=== PATIENT | female | born 1955 | race Caucasian/White ===

== ENCOUNTER → 2017-06-28 | Outpatient (CLI) | payer OTHER ==
--- NOTE | 2017-06-29 10:37 | MM ---
Reason for exam: screening (asymptomatic). Last mammogram was performed 18 years and 1 month ago. History: Patient is postmenopausal. Physical Findings: A clinical breast exam by your physician is recommended on an annual basis and results should be correlated with mammographic findings. MG Screening Mammo w CAD Bilateral CC and MLO view(s) were taken. No prior studies available for comparison. The breast tissue is heterogeneously dense. This may lower the sensitivity of mammography. There is no discrete abnormality. ASSESSMENT: Negative, BI-RAD 1 RECOMMENDATION: Routine screening mammogram of both breasts in 1 year.
== END | disposition home or self-care (01) ==
LOC: RADMAMWWP 07:16
PROVIDERS: ATTEND Internal Medicine
DX: Z12.31 Encounter for screening mammogram for malignant neoplasm of breast (principal)
CPT/HCPCS: 77067

== ENCOUNTER 2018-07-08 11:04 | Observation (INO) | payer MEDICARE ==
[2018-07-08] MEDS ORDERED: SODIUM CHLORIDE 0.9% 1,000 ML IV STA ×2 (11:40)
[2018-07-08] MEDS ORDERED: IPRATROPIUM-ALBUTEROL 3 ML NEB INHALATION STA (11:40)
[2018-07-08] MEDS ORDERED: methylPREDNISolone SOD SUCCI 125 MG/2 ML VIAL IV STA (11:40)
--- NOTE | 2018-07-08 11:44 | ED ---
SOB HPI - General Chief Complaint: Shortness of Breath Stated Complaint: SOB Time Seen by Provider: 07/08/18 11:10 Source: patient, EMS, RN notes reviewed, old records reviewed Mode of arrival: EMS Limitations: no limitations - History of Present Illness Initial Comments: 62-year-old female presents returns today with complaints of shortness of breath since Sunday. She's been having a cough and congestion. She was seen by her PCP and completed steroids and a course of Levaquin. She reports that she's had some chest pain starting on Sunday and had an episode today. Patient states she has a family history of heart disease no known history of coronary disease. She denies seeing a recoil spring winder or stress test. She complains of a heaviness o n her chest. She also states that in the center of her chest she's been having some pain with deep breathing. - Related Data Home Medications Medication Instructions Recorded Confirmed Losartan-Hctz 50-12.5 mg [Hyzaar 1 tab PO DAILY 07/23/13 07/08/18 50-12.5] Atorvastatin [Lipitor] 20 mg PO DAILY 07/08/18 07/08/18 Budesonide/Formoterol Fumarate 2 puff INHALATION RT-BID 07/08/18 07/08/18 [Symbicort 80-4.5 Mcg Inhaler] Ipratropium/Albuterol Sulfate 3 ml INHALATION RT-QID 07/08/18 07/08/18 [Duoneb 0.5 mg-3 mg/3 ml Soln] Montelukast [Singulair] 10 mg PO HS 07/08/18 07/08/18 metFORMIN HCL 1,000 mg PO BID-W/MEALS 07/08/18 07/08/18 Allergies Allergy/AdvReac Type Severity Reaction Status Date / Time No Known Allergies Allergy Verified 07/08/18 11:28 Review of Systems ROS Statement: Those systems with pertinent positive or pertinent negative responses have been documented in the HPI. ROS Other: All systems not noted in ROS Statement are negative. Past Medical History Past Medical History: Asthma, COPD, Hyperlipidemia, Hypertension, Osteoarthritis (OA) Additional Past Medical History / Comment(s): BRONCHITIS, DIVERTICULITIS, ECZEMA, OCCUPATIONAL ASTHMA; quit smoking 2014 History of Any Multi-Drug Resistant Organisms: None Reported Past Surgical History: Cholecystectomy Past Anesthesia/Blood Transfusion Reactions: No Reported Reaction Past Psychological History: No Psychological Hx Reported Smoking Status: Former smoker Past Alcohol Use History: None Reported Past Drug Use History: None Reported, Marijuana General Exam Limitations: no limitations General appearance: alert, in no apparent distress Head exam: Present: atraumatic, normocephalic, normal inspection Eye exam: Present: normal appearance, PERRL, EOMI. Absent: scleral icterus, conjunctival injection, periorbital swelling ENT exam: Present: normal exam, mucous membranes moist Neck exam: Present: normal inspection. Absent: tenderness, meningismus, ly mphadenopathy Respiratory exam: Present: wheezes (Minimal wheezing.). Absent: normal lung sounds bilaterally, respiratory distress, rales, rhonchi, stridor Cardiovascular Exam: Present: regular rate, normal rhythm, normal heart sounds. Absent: systolic murmur, diastolic murmur, rubs, gallop, clicks GI/Abdominal exam: Present: soft, normal bowel sounds. Absent: distended, tenderness, guarding, rebound, rigid Extremities exam: Present: normal inspection, full ROM, normal capillary refill. Absent: tenderness, pedal edema, joint swelling, calf tenderness Back exam: Present: normal inspection Neurological exam: Present: alert, oriented X3, CN II-XII intact Psychiatric exam: Present: normal affect, normal mood Skin exam: Present: warm, dry, intact, normal color. Absent: rash Course Vital Signs 07/08/18 07/08/18 07/08/18 11:07 11:19 11:30 Temperature 99.2 F Pulse Rate 110 H 113 H Respiratory 18 22 22 Rate Blood Pressure 138/85 138/85 O2 Sat by Pulse 95 97 Oximetry 07/08/18 07/08/18 07/08/18 11:53 12:00 12:30 Temperature Pulse Rate 108 H 105 H 105 H Respiratory 22 20 Rate Blood Pressure 119/79 135/75 O2 Sat by Pulse 95 97 Oximetry 07/08/18 07/08/18 07/08/18 13:00 13:15 13:30 Temperature Pulse Rate 105 H 106 H 112 H Respiratory 22 22 16 Rate Blood Pressure 126/64 126/64 126/64 O2 Sat by Pulse 97 96 96 Oximetry 07/08/18 07/08/18 14:00 14:09 Temperature Pulse Rate 106 H Respiratory 18 Rate Blood Pressure 129/75 135/74 O2 Sat by Pulse 95 Oximetry Medical Decision Making - Medical Decision Making 62-year-old female since reports today for violation for chest pain, tachycardia, shortness is having a cough and some chest pain with deep inspiration. Patient states that she's never had a chest pain such as this before relates this pneumonia or COPD exacerbations. At this time she does have some minimal wheezing. Is given DuoNeb treatment. Pulse ox is been mid upper 90s. She is continues to complain of some chest pain. EKG was reviewed and shows no acute ST elevation or T-wave inversions. Her initial troponin is negative. Patient is be tachycardic. CT HOYT chest was completed with it did not d-dimer of 0.58. This was negative for PE. Patient chest x-ray shows evidence of COPD and pulmonary nodule. Blood work was reviewed mildly of leukocytosis but she has been a recent steroid. For continued chest pain, concerns for sepsis with COPD exacerbation. Patient was admitted. Discussed case with Dr. Moran who discussed the case with [facility] hospitalist. - Lab Data Result diagrams: 07/08/18 11:52 07/08/18 11:52 Lab Results 07/08/18 07/08/18 07/08/18 Range/Units 11:52 11:52 11:52 WBC 11.0 H (3.8-10.6) k/uL RBC 4.59 (3.80-5.40) m/uL Hgb 12.7 (11.4-16.0) gm/dL Hct 39.3 (34.0-46.0) % MCV 85.4 (80.0-100.0) fL MCH 27.6 (25.0-35.0) pg MCHC 32.3 (31.0-37.0) g/dL RDW 13.2 (11.5-15.5) % Plt Count 236 (150-450) k/uL Neutrophils % 81 % Lymphocytes % 10 % Monocytes % 5 % Eosinophils % 2 % Basophils % 0 % Neutrophils # 8.9 H (1.3-7.7) k/uL Lymphocytes # 1.1 (1.0-4.8) k/uL Monocytes # 0.5 (0-1.0) k/uL Eosinophils # 0.3 (0-0.7) k/uL Basophils # 0.0 (0-0.2) k/uL PT 9.8 (9.0-12.0) sec INR 0.9 (<1.2) APTT 24.1 (22.0-30.0) sec D-Dimer 0.58 (<0.60) mg/L FEU Sodium 139 (137-145) mmol/L Potassium 4.2 (3.5-5.1) mmol/L Chloride 101 (98-107) mmol/L Carbon Dioxide 28 (22-30) mmol/L Anion Gap 10 mmol/L BUN 11 (7-17) mg/dL Creatinine 0.57 (0.52-1.04) mg/dL Est GFR (CKD-EPI)AfAm >90 (>60 ml/min/1.73 sqM) Est GFR (CKD-EPI)NonAf >90 (>60 ml/min/1.73 sqM) Glucose 124 H (74-99) mg/dL Calcium 9.3 (8.4-10.2) mg/dL Total Bilirubin 0.6 (0.2-1.3) mg/dL AST 16 (14-36) U/L ALT 29 (9-52) U/L Alkaline Phosphatase 134 H (38-126) U/L Troponin I (0.000-0.034) ng/mL Total Protein 6.9 (6.3-8.2) g/dL Albumin 3.8 (3.5-5.0) g/dL 07/08/18 Range/Units 11:52 WBC (3.8-10.6) k/uL RBC (3.80-5.40) m/uL Hgb (11.4-16.0) gm/dL Hct (34.0-46.0) % MCV (80.0-100.0) fL MCH (25.0-35.0) pg MCHC (31.0-37.0) g/dL RDW (11.5-15.5) % Plt Count (150-450) k/uL Neutrophils % % Lymphocytes % % Monocytes % % Eosinophils % % Basophils % % Neutrophils # (1.3-7.7) k/uL Lymphocytes # (1.0-4.8) k/uL Monocytes # (0-1.0) k/uL Eosinophils # (0-0.7) k/uL Basophils # (0-0.2) k/uL PT (9.0-12.0) sec INR (<1.2) APTT (22.0-30.0) sec D-Dimer (<0.60) mg/L FEU Sodium (137-145) mmol/L Potassium (3.5-5.1) mmol/L Chloride (98-107) mmol/L Carbon Dioxide (22-30) mmol/L Anion Gap mmol/L BUN (7-17) mg/dL Creatinine (0.52-1.04) mg/dL Est GFR (CKD-EPI)AfAm (>60 ml/min/1.73 sqM) Est GFR (CKD-EPI)NonAf (>60 ml/min/1.73 sqM) Glucose (74-99) mg/dL Calcium (8.4-10.2) mg/dL Total Bilirubin (0.2-1.3) mg/dL AST (14-36) U/L ALT (9-52) U/L Alkaline Phosphatase (38-126) U/L Troponin I <0.012 (0.000-0.034) ng/mL Total Protein (6.3-8.2) g/dL Albumin (3.5-5.0) g/dL 07/08/18 11:46 EKG shows sinus tachycardia, possible lateral infarct age undetermined. Ventricular rate of 108 beats were minute. IL interval is 150 ms. QS duration 84 ms. QT QTc is 320/439 ms. No evidence of ST elevation. - Radiology Data Radiology results: report reviewed Chest x-ray shows COPD, correlating for right upper lobe 7 mm pulmonary nodule. Disposition Clinical Impression: Chest pain, COPD exacerbation Disposition: ADMITTED IP TO THIS HOSP Condition: Stable Is patient prescribed a controlled substance at d/c from ED?: No Referrals: Heather Rashid MD [Primary Care Provider] - 1-2 days Time of Disposition: 14:43
[2018-07-08 12:09] LABS: Basophils % (A) 0 %; Eosinophils # (A) 0.3 k/uL (0-0.7); Eosinophils % (A) 2 %; HCT 39.3 % (34.0-46.0); HGB 12.7 gm/dL (11.4-16.0); Lymphocytes # (A) 1.1 k/uL (1.0-4.8); Lymphocytes % (A) 10 %; MCH 27.6 pg (25.0-35.0); MCHC 32.3 g/dL (31.0-37.0); MCV 85.4 fL (80.0-100.0); Mean Platelet Volume 7.2; Monocytes # (A) 0.5 k/uL (0-1.0); Monocytes % (A) 5 %; Neutrophils # (A) 8.9 k/uL (1.3-7.7); Neutrophils % (A) 81 %; Platelet Count 236 k/uL (150-450); RBC 4.59 m/uL (3.80-5.40); RDW 13.2 % (11.5-15.5)
[2018-07-08 12:16] LABS: ALT 29 U/L (9-52); AST 16 U/L (14-36); Albumin 3.8 g/dL (3.5-5.0); Alkaline Phosphatase 134 U/L (38-126); Anion Gap 10 mmol/L; Blood Urea Nitrogen 11 mg/dL (7-17); Calcium 9.3 mg/dL (8.4-10.2); Carbon Dioxide 28 mmol/L (22-30); Chloride 101 mmol/L (98-107); Glucose 124 mg/dL (74-99); Potassium 4.2 mmol/L (3.5-5.1); Sodium 139 mmol/L (137-145); Total Bilirubin 0.6 mg/dL (0.2-1.3); Total Protein 6.9 g/dL (6.3-8.2)
[2018-07-08 12:18] LABS: D-Dimer 0.58 mg/L FEU (<0.60); INR 0.9 (<1.2); Partial Thromboplastin Time 24.1 sec (22.0-30.0); Prothrombin Time 9.8 sec (9.0-12.0)
--- NOTE | 2018-07-08 12:28 | XR ---
EXAMINATION TYPE: XR chest 2V DATE OF EXAM: 07/08/2018 COMPARISON: 11/30/2015 TECHNIQUE: PA and lateral views submitted. HISTORY: Difficulty breathing FINDINGS: Biapical pleural thickening. There is a vague nodular density seen in the right upper lobe measuring [address] of the chest. Hypertrophic and degenerative changes spine. Hyperinflation compatib le COPD. No overt failure. No pleural effusion. Surgical clips in the abdomen. IMPRESSION: 1. COPD. Correlate for right upper lobe 7 mm pulmonary nodule.
--- NOTE | 2018-07-08 14:19 | CT ---
EXAMINATION TYPE: CT chest angio for PE DATE OF EXAM: 07/08/2018 COMPARISON: None HISTORY: SOB, cough, Chest pain CT DLP: 243.9 mGycm CONTRAST: CT chest with contrast and 3D reconstruction with MIP imaging is performed with IV Contrast, patient injected with 74 mL of Isovue 370. Contrast-enhanced CT of the chest was performed through the course of the pulmonary arteries with udnia g and mediastinal window settings submitted. 3D reconstruction with MIP imaging was also performed. PULMONARY ARTERIES: The pulmonary arteries and their major tributaries are patent. I do not see melanie dence for sizable filling defect to suggest pulmonary embolic process. LUNGS: Pleural-based apical densities likely on the basis of parenchymal scarring. Six-month follow-u p CT of the chest is advised. Scattered emphysematous changes noted. No evidence for atelectasis. N o pulmonary nodule or mass is detected. No pleural effusion. MEDIASTINUM: Thoracic aorta is of normal caliber,however, evaluation is limited given timing of the contrast bolus. If there is concern for thoracic aortic pathology consider GRAHAM. Correlate clinicall y . The heart is not enlarged. No evidence for mediastinal mass. No mediastinal lymph nodes greater than 1cm. HILAR STRUCTURES: No evidence for mass. No hilar lymph nodes greater than 1 cm. UPPER ABDOMEN: No significant abnormality is seen. IMPRESSION: 1. No evidence for Pulmonary embolism at this time.
[2018-07-08] MEDS ORDERED: ACETAMINOPHEN TAB 325 MG TAB PO PRN (14:43)
[2018-07-08] MEDS ORDERED: IBUPROFEN 400 MG TAB PO PRN (14:43)
[2018-07-08] MEDS ORDERED: ONDANSETRON 4 MG/2 ML VIAL IVP PRN (14:43)
[2018-07-08] MEDS ORDERED: NALOXONE 0.4 MG/ML 1 ML VIAL IV PRN (14:43)
[2018-07-08] MEDS ORDERED: IPRATROPIUM-ALBUTEROL 3 ML NEB INHALATION PRN (14:45)
[2018-07-08] MEDS ORDERED: NITROGLYCERIN SL TABS 0.4 MG TAB SUBLINGUAL PRN (14:47)
[2018-07-08 16:31] LABS: Glucose,Whole Blood 155 mg/dL (75-99)
[2018-07-08] MEDS: SODIUM CHLORIDE 0.9% 1,000 ML IV SCH (16:34)
[2018-07-08] MEDS: methylPREDNISolone SOD SUCCI 125 MG/2 ML VIAL IV SCH ×2 (17:28→23:18)
[2018-07-08] MEDS ORDERED: methylPREDNISolone SOD SUCCI 125 MG/2 ML VIAL IV SCH (18:00)
[2018-07-08] MEDS: metFORMIN 500 MG TAB PO SCH (18:15)
[2018-07-08] MEDS: IPRATROPIUM-ALBUTEROL 3 ML NEB INHALATION SCH (18:57)
[2018-07-08] MEDS: SYMBICORT 80-4.5 MCG INHALER INHALATION SCH (19:37)
[2018-07-08] MEDS: MONTELUKAST 10 MG TAB PO SCH (20:18)
[2018-07-08] MEDS: guaiFENesin 600 MG TABLET.ER PO SCH (20:18)
[2018-07-08] MEDS: HEPARIN SODIUM,PORCINE 5,000 UNIT/ML 1 ML VIAL SQ SCH (20:18)
[2018-07-08] MEDS ORDERED: guaiFENesin SYRUP 100MG/5ML 200 MG/10 ML CUP PO PRN (20:29)
[2018-07-08 20:57] LABS: Glucose,Whole Blood 257 mg/dL (75-99)
[2018-07-08] MEDS ORDERED: guaiFENesin 600 MG TABLET.ER PO SCH (21:00)
[2018-07-08] MEDS: INSULIN ASPART (NovoLOG) 100 UNIT/ML VIAL SQ SCH (21:04)
--- NOTE | 2018-07-09 02:17 | HP ---
HISTORY AND PHYSICAL CHIEF COMPLAINTS: Chest pain. HISTORY OF PRESENT ILLNESS: This 62-year-old woman with a past medical history of asthma, COPD, diabetes, hypertension, hyperlipidemia, DJD, bronchitis, being followed by Dr. Rashid in the outpatient setting. The patient is admitted with significant shortness of breath and cough for the last several days. Patient initially had chest pain which was dull in character, but subsequently patient had chest pain associated with cough which is more of a dull to sharp in character, which is felt in the epigastrium and as well as anterior part of the chest. Patient came to [facility] and was admitted for further evaluation and treatment. There is no history of fever, rigors or chills. No history of headache, loss of consciousness or seizures. The troponins are negative. The patient also had a chest CTA which showed there is no pulmonary embolism. PAST MEDICAL HISTORY: History of asthma, COPD, diabetes, hypertension, hyperlipidemia, history of DJD, history of bronchitis, cholecystectomy. MEDICATIONS: Prior to admission home medications are: 1. Singular 10 mg q.h.s. 2. Lipitor 20 mg p.o. daily. 3. Metformin 1000 mg b.i.d. with meals. 4. Hyzaar 50/12.5 mg b.i.d. 5. DuoNeb q.i.d. 6. Symbicort 160/4.5 two puffs b.i.d. ALLERGIES: None. FAMILY HISTORY: No history of disease or strokes in the family. SOCIAL HISTORY: History of THC. Previous history of smoking. SOCIAL HISTORY: ENT: No diminished vision. No diminished hearing. CARDIOVASCULAR: S1, S2. RESPIRATORY: As mentioned earlier. GI no nausea or vomiting. : No dysuria. NERVOUS SYSTEM: No numbness or weakness. ALLERGY/IMMUNOLOGY: No asthma or hayfever. MUSCULOSKELETAL: As mentioned earlier. HEMATOLOGY/ONCOLOGY: No history of anemia. ENDOCRINE: Diabetes mellitus. CONSTITUTIONAL: As mentioned earlier. Dermatology: Negative. Rheumatology: Negative. Psychiatry: As mentioned earlier. PHYSICAL EXAMINATION: Alert and oriented x3, pulse 100. Blood pressure 115/72, respiration 18, temperature 97.6, pulse ox 97% on 2 L. HEENT: Conjunctivae normal. NECK: No jugular venous distention. CARDIOVASCULAR: S1, S2 muffled. RESPIRATORY: Breath sounds diminished in the bases. Bilateral scattered rhonchi and crackles. Expiratory wheezing also present. ABDOMEN: Soft, nontender. LEGS are no edema. No swelling. CENTRAL NERVOUS SYSTEM: No focal deficits. LABS: WBC 7, hemoglobin is 12.7. ASSESSMENT: 1. Chest pain for evaluation, rule out unstable angina, coronary artery disease, possibly pleuritic pain. 2. Chronic obstructive pulmonary disease acute exacerbation, acute purulent tracheobronchitis. 3. Asthma. 4. Diabetes mellitus type 2. 5. Hypertension. 6. Hyperlipidemia. 7. Degenerative joint disease. 8. History of eczema. 9. Remote history of nicotine dependence. 10.History of cholecystectomy. RECOMMENDATIONS AND DISCUSSION: This 62-year-old woman who presented with multiple complex medical issues, we will monitor the patient closely. Continue the current medications, management and symptomatic treatment. We will initiate bronchodilators, steroids, antibiotics, Cardiology and pulmonology consultations. Guarded prognosis because of multiple complex medical issues. Further recommendations to follow. See orders for details. A copy of dictation being forwarded to Dr. Rashid who is the primary care physician. MMTINOL / IJN: [id number] /
[2018-07-09] MEDS: methylPREDNISolone SOD SUCCI 125 MG/2 ML VIAL IV SCH ×2 (05:45→12:20)
[2018-07-09 06:32] LABS: Basophils % (A) 0 %; Eosinophils % (A) 0 %; HCT 35.3 % (34.0-46.0); HGB 11.6 gm/dL (11.4-16.0); Lymphocytes # (A) 0.7 k/uL (1.0-4.8); Lymphocytes % (A) 6 %; MCHC 32.8 g/dL (31.0-37.0); MCV 85.4 fL (80.0-100.0); Mean Platelet Volume 7.5; Monocytes # (A) 0.2 k/uL (0-1.0); Monocytes % (A) 1 %; Neutrophils % (A) 91 %; Platelet Count 252 k/uL (150-450); RBC 4.13 m/uL (3.80-5.40); RDW 13.3 % (11.5-15.5); WBC 10.9 k/uL (3.8-10.6)
[2018-07-09 06:47] LABS: Anion Gap 5 mmol/L; Blood Urea Nitrogen 12 mg/dL (7-17); Calcium 8.7 mg/dL (8.4-10.2); Carbon Dioxide 27 mmol/L (22-30); Chloride 108 mmol/L (98-107); Cholesterol 134 mg/dL (<200); Glucose 160 mg/dL (74-99); HDL Cholesterol 60 mg/dL (40-60); LDL Cholesterol,Calculated 63 mg/dL (0-99); Potassium 4.7 mmol/L (3.5-5.1); Sodium 140 mmol/L (137-145); Triglycerides 57 mg/dL (<150)
[2018-07-09 06:50] LABS: Glucose,Whole Blood 160 mg/dL (75-99)
[2018-07-09] MEDS: SYMBICORT 80-4.5 MCG INHALER INHALATION SCH ×2 (07:33→19:43)
[2018-07-09] MEDS: IPRATROPIUM-ALBUTEROL 3 ML NEB INHALATION SCH ×4 (07:33→19:43)
--- NOTE | 2018-07-09 08:55 | P.CRDCN ---
History of Present Illness History of present illness: This is a pleasant 62-year-old female past medical history significant for COPD, hypertension, dyslipidemia, diabetes mellitus and former nicotine dependence. She quit smoking in 2014. She denies history of coronary artery disease and does not follow with a casting sorter for any reason. We have been asked to see her in consultation secondary to chest discomfort. She states st arting about Sunday she noticed an increased shortness of breath and a discomfort in the midsternal region that was worse with deep inspiration or cough. Her symptoms of shortness of breath and chest discomfort has progressively Worsened that time. At the time of my exam she is seen resting comfortably in bed in no acute distress. She does appear somewhat dyspneic with conversation. She is currently chest pain-free. EKG reveals sinus mechanism with evidence of his placement bilaterally. Repeat EKG was normal sinus mechanism with no acute ischemic abnormalities noted. Chest x-ray reveals hyperinflation compatible with COPD, right upper lobe nodule 7 mm with no evidence of head. CTA chest no evidence of pulmonary embolism, pleural-based apical densities likely on the basis of parenchymal scarring, scattered emphysematous changes. Pulmonary nodule or mass detected. Follow-up in 6 months. Laboratory data reviewed, WBC 10.9, hemoglobin 11.6, platelets 252, sodium 140, potassium 4.7, creatinine 0.47, cardiac enzymes negative 3, LDL 63, d-dimer 0.58. Current cardiac medications include losartan/HCTZ 50/12.5 mg daily and atorvastatin 20 mg daily. Most recent echocardiogram obtained revealed preserved LV systolic function with EF 55-60%. At the time of my exam: CONSTITUTIONAL: Denies fever. Denies chills. EYES: Denies blurred vision. Denies vision changes. Denies eye pain. EARS, NOSE, MOUTH & THROAT: Denies headache. Denies sore throat. Denies ear pain. CARDIOVASCULAR: Denies chest pain. Complains of shortness of breath. Denies orthopnea. Denies PND. Denies palpitations. RESPIRATORY: Complains of cough. GASTROINTESTINAL: Denies abdominal pain. Denies diarrhea. Denies constipation. Denies nausea. Denies vomiting. MUSCULOSKELETAL: Denies myalgias. INTEGUMENTARY: Denies pruitis. Denies rash. NEUROLOGIC: Denies numbness. Denies tingling. Denies weakness. PSYCHIATRIC: Denies anxiety. Denies depression. ENDOCRINE: Denies fatigue. Denies weight change. Denies polydipsia. Denies polyurina. GENITOURINARY: Denies burning, hematuria or urgency with micturation. HEMATOLOGIC: Denies history of anemia. Denies bleeding. Blood pressure 123/73 heart rate 98 afebrile maintaining oxygen saturation on nasal cannula GENERAL: This is a 62-year-old female in no apparent distress at the time of my examination. HEENT: Head is atraumatic, normocephalic. Pupils are equal, round. Sclerae anicteric. Conjunctivae are clear. Mucous membranes of the mouth are moist. Neck is supple. There is no jugular venous distention. No carotid bruit is heard. LUNGS: Clear to auscultation no wheezes, rales or rhonchi. No chest wall tenderness is noted on palpation or with deep breathing. Prolonged expiration. HEART: Regular rate and rhythm without murmurs, rubs or gallops. S1 and S2 heard. ABDOMEN: Soft, nontender. Bowel sounds are heard. No organomegaly noted. EXTREMITIES: No evidence of peripheral edema and no calf tenderness noted. VASCULAR: Radial and dorsalis pedis pulses palpated, no evidence of clubbing. NEUROLOGIC: Patient is awake, alert and oriented x3. ASSESSMENT Chest pain, pleuritic. An acute coronary event has been ruled out. COPD, acute on chronic exacerbation Hypertension Dyslipidemia Diabetes mellitus Former nicotine dependence, quit 2014 PLAN An acute coronary event has been ruled out with no EKG evidence of ischemia and negative cardiac enzymes. Chest discomfort is pleuritic in nature and most likely related to acute exacerbation of COPD. Obtain 2-D echocardiogram and Doppler study to assess cardiac structure and function. Check NT proBNP. Recommend she follow-up in the office in 2-3 weeks when her dyspnea has improved for outpatient stress testing. Thank you kindly for this consultation. Nurse Practitioner note has been reviewed, I agree with a documented findings and plan of care. Patient was seen and examined. Past Medical History Past Medical History: Asthma, COPD, Diabetes Mellitus, Hyperlipidemia, Hypertension, Osteoarthritis (OA) Additional Past Medical History / Comment(s): BRONCHITIS, DIVERTICULITIS, ECZEMA, OCCUPATIONAL ASTHMA; quit smoking 2014 History of Any Multi-Drug Resistant Organisms: None Reported Past Surgical History: Cholecystectomy Past Anesthesia/Blood Transfusion Reactions: No Reported Reaction Past Psychological History: No Psychological Hx Reported Smoking Status: Former smoker Past Alcohol Use History: None Reported Past Drug Use History: None Reported, Marijuana Medications and Allergies Home Medications Medication Instructions Recorded Confirmed Type Losartan-Hctz 50-12.5 mg [Hyzaar 1 tab PO DAILY 07/23/13 07/08/18 History 50-12.5] Atorvastatin [Lipitor] 20 mg PO DAILY 07/08/18 07/08/18 History Budesonide/Formoterol Fumarate 2 puff INHALATION RT-BID 07/08/18 07/08/18 History [Symbicort 80-4.5 Mcg Inhaler] Ipratropium/Albuterol Sulfate 3 ml INHALATION RT-QID 07/08/18 07/08/18 History [Duoneb 0.5 mg-3 mg/3 ml Soln] Montelukast [Singulair] 10 mg PO HS 07/08/18 07/08/18 History metFORMIN HCL 1,000 mg PO BID-W/MEALS 07/08/18 07/08/18 History Allergies Allergy/AdvReac Type Severity Reaction Status Date / Time No Known Allergies Allergy Verified 07/08/18 11:28 Physical Exam Vitals: Vital Signs Temp Pulse Pulse Pulse Resp BP BP 07/09/18 08:00 97.4 F L 98 16 123/73 07/09/18 07:59 98 16 07/09/18 07:45 94 07/09/18 07:36 98 07/09/18 03:32 97.8 F 98 16 114/66 07/09/18 03:08 20 07/08/18 23:52 20 07/08/18 23:38 97.7 F 116 H 20 159/85 07/08/18 20:00 97.8 F 104 H 18 109/66 07/08/18 18:59 102 H 07/08/18 16:08 97.6 F 100 18 115/72 07/08/18 16:00 100 18 07/08/18 15:36 98.5 F 102 H 18 117/64 07/08/18 14:09 106 H 18 135/74 07/08/18 14:00 129/75 07/08/18 13:30 112 H 16 126/64 07/08/18 13:15 106 H 22 126/64 07/08/18 13:00 105 H 22 126/64 07/08/18 12:30 105 H 20 135/75 07/08/18 12:00 105 H 22 119/79 07/08/18 11:53 108 H 07/08/18 11:30 113 H 22 138/85 07/08/18 11:19 22 07/08/18 11:07 99.2 F 110 H 18 138/85 Pulse Ox 07/09/18 08:00 98 07/09/18 07:59 07/09/18 07:45 07/09/18 07:36 92 L 07/09/18 03:32 96 07/09/18 03:08 07/08/18 23:52 07/08/18 23:38 95 07/08/18 20:00 96 07/08/18 18:59 07/08/18 16:08 96 07/08/18 16:00 07/08/18 15:36 95 07/08/18 14:09 95 07/08/18 14:00 07/08/18 13:30 96 07/08/18 13:15 96 07/08/18 13:00 97 07/08/18 12:30 97 07/08/18 12:00 95 07/08/18 11:53 07/08/18 11:30 97 07/08/18 11:19 07/08/18 11:07 95 Intake and Output 07/08/18 07/09/18 07/09/18 22:59 06:59 14:59 Intake Total 240 Balance 240 Intake: Oral 240 Other: Voiding Method Toilet Toilet Toilet # Voids 1 1 Results 07/09/18 06:01 07/09/18 06:01 Cardiac Enzymes 07/08/18 07/08/18 07/08/18 Range/Units 11:52 11:52 17:57 AST 16 (14-36) U/L Troponin I <0.012 <0.012 (0.000-0.034) ng/mL 07/08/18 Range/Units 23:44 AST (14-36) U/L Troponin I <0.012 (0.000-0.034) ng/mL Coagulation 07/08/18 Range/Units 11:52 PT 9.8 (9.0-12.0) sec APTT 24.1 (22.0-30.0) sec Lipids 07/09/18 Range/Units 06:01 Triglycerides 57 (<150) mg/dL Cholesterol 134 (<200) mg/dL HDL Cholesterol 60 (40-60) mg/dL CBC 07/08/18 07/09/18 Range/Units 11:52 06:01 WBC 11.0 H 10.9 H (3.8-10.6) k/uL RBC 4.59 4.13 (3.80-5.40) m/uL Hgb 12.7 11.6 (11.4-16.0) gm/dL Hct 39.3 35.3 (34.0-46.0) % Plt Count 236 252 (150-450) k/uL Comprehensive Metabolic Panel 07/08/18 07/09/18 Range/Units 11:52 06:01 Sodium 139 140 (137-145) mmol/L Potassium 4.2 4.7 (3.5-5.1) mmol/L Chloride 101 108 H (98-107) mmol/L Carbon Dioxide 28 27 (22-30) mmol/L BUN 11 12 (7-17) mg/dL Creatinine 0.57 0.47 L (0.52-1.04) mg/dL Glucose 124 H 160 H (74-99) mg/dL Calcium 9.3 8.7 (8.4-10.2) mg/dL AST 16 (14-36) U/L ALT 29 (9-52) U/L Alkaline Phosphatase 134 H (38-126) U/L Total Protein 6.9 (6.3-8.2) g/dL Albumin 3.8 (3.5-5.0) g/dL Current Medications Generic Name Dose Route Start Last Admin Trade Name Freq PRN Reason Stop Dose Admin Acetaminophen 650 mg 07/08/18 14:43 Tylenol Tab PO Q6HR PRN Mild Pain or Fever > 100.5 Albuterol/Ipratropium 3 ml 07/08/18 14:45 Duoneb 0.5 Mg-3 Mg/3 Ml Soln INHALATION RT-Q4H PRN Shortness Of Breath Or Wheezing Albuterol/Ipratropium 3 ml 07/08/18 20:00 07/09/18 07:33 Duoneb 0.5 Mg-3 Mg/3 Ml Soln INHALATION 3 ml RT-QID LYNDA Administration Atorvastatin Calcium 20 mg 07/09/18 09:00 Lipitor PO DAILY LYNDA Budesonide/Formoterol Fumarate 2 puff 07/08/18 20:00 07/09/18 07:33 Symbicort 80-4.5 Mcg Inhaler INHALATION 2 puff RT-BID LYNDA Administration Guaifenesin 1,200 mg 07/08/18 21:00 07/08/18 20:18 Mucinex PO 1,200 mg Q12HR LYNDA Administration Guaifenesin 200 mg 07/08/18 20:29 07/08/18 21:04 Robitussin PO 200 mg Q6H PRN Administration Cough HCTZ/Losartan Potassium 1 each 07/09/18 09:00 Hyzaar 50-12.5 PO DAILY LYNDA Heparin Sodium (Porcine) 5,000 unit 07/08/18 21:00 07/08/18 20:18 Heparin SQ 5,000 unit Q12HR LYNDA Administration Sodium Chloride 1,000 mls @ 20 mls/hr 07/08/18 14:45 07/08/18 16:34 Saline 0.9% IV Not Given .Q24H LYNDA Ceftriaxone Sodium 1 gm/ 50 mls @ 100 mls/hr 07/08/18 21:00 07/08/18 20:53 Sodium Chloride IVPB 100 mls/hr HS LYNDA Administration Ibuprofen 400 mg 07/08/18 14:43 Motrin PO Q6HR PRN Mild Pain or Fever > 100.5 Insulin Aspart 0 unit 07/08/18 21:00 07/08/18 21:04 Novolog SQ 8 unit ACHS LYNDA Administration Protocol Metformin HCl 1,000 mg 07/08/18 17:30 07/08/18 18:15 Glucophage PO 1,000 mg BID-W/MEALS LYNDA Administration Methylprednisolone Sodium Succinate 60 mg 07/08/18 18:00 07/09/18 05:45 Solu-Medrol IV 60 mg Q6HR LYNDA Administration Montelukast Sodium 10 mg 07/08/18 21:00 07/08/18 20:18 Singulair PO 10 mg HS LYNDA Administration Naloxone HCl 0.2 mg 07/08/18 14:43 Narcan IV Q2M PRN Opioid Reversal Nitroglycerin 0.4 mg 07/08/18 14:47 Nitrostat SUBLINGUAL Q5M PRN Chest Pain Ondansetron HCl 4 mg 07/08/18 14:43 Zofran IVP Q8HR PRN Nausea And Vomiting Intake and Output 07/08/18 07/09/18 07/09/18 22:59 06:59 14:59 Intake Total 240 Balance 240 Intake: Oral 240 Other: Voiding Method Toilet Toilet Toilet # Voids 1 1 07/09/18 06:01 07/09/18 06:01
[2018-07-09] MEDS ORDERED: ASPIRIN 325 MG TAB PO SCH (09:00)
[2018-07-09] MEDS: guaiFENesin 600 MG TABLET.ER PO SCH ×2 (09:04→20:14)
[2018-07-09] MEDS: ATORVASTATIN 20 MG TAB PO SCH (09:04)
[2018-07-09] MEDS: metFORMIN 500 MG TAB PO SCH ×2 (09:04→17:21)
[2018-07-09] MEDS: HEPARIN SODIUM,PORCINE 5,000 UNIT/ML 1 ML VIAL SQ SCH ×2 (09:04→20:14)
[2018-07-09] MEDS: LOSARTAN-HCTZ 50-12.5 MG 1 EACH TAB PO SCH (09:04)
[2018-07-09] MEDS: INSULIN ASPART (NovoLOG) 100 UNIT/ML VIAL SQ SCH ×4 (09:05→20:19)
[2018-07-09 11:41] LABS: Glucose,Whole Blood 145 mg/dL (75-99)
[2018-07-09 16:46] LABS: Glucose,Whole Blood 176 mg/dL (75-99)
--- NOTE | 2018-07-09 16:58 | P.CNPUL ---
History of Present Illness Consult date: 07/09/18 Reason for consult: COPD Chief complaint: Shortness of breath, cough, wheezing. History of present illness: This is a 62-year-old female with history of COPD, remote smoking history, however she is not O2 dependent and not prednisone dependent. Patient quit smoking in 2014, had questionable history of occupational asthma. According the patient I saw her for her COPD over 15 years ago, and over the last few years, s he has been seeing Dr. Silvia quinn, but she has no plans to go back and see him again. Apparently at one point she was on Xolair injections and multiple bronchodilators for her COPD. Over the last 5 days, patient has been complaining of cough wheezing shortness of breath. And some vague chest disco mfort. She had some heaviness in the chest, and pain on deep breathing. CT angiogram of the chest was performed and it showed mostly some pleural-based apical densities and some parenchymal scarring. She also had some scattered emphysematous changes. No evidence of pneumonia. No evidence of mediastinal adenopathy. Patient was admitted, placed on bronchodilators, and I was asked to see her on consultation. Presently less cough and less wheezing less shortness of breath, she was already seen by cardiology on consultation, and acute coronary event was ruled out based on her cardiac panel. Labs on admission showed relatively normal basic metabolic profile, normal troponin, normal BNP level, and a relatively normal CBC. Review of Systems Constitutional: Denies any weight loss, no fever, no chills, no night sweats. HEENT: Denies any sore throat, no earaches, no diplopia, no blurred vision, no headaches, no dizziness. Cardiac: As noted in HPI, vague chest discomfort. Cardiac etiology ruled out GI: Denies any nausea vomiting abdominal pain melena or hematemesis. No diarrhea no constipation. Genitourinary: Denies any dysuria frequency urgency or hematuria. Mus[place] skeletal: Denies any arthralgia, or myalgia. Skin: Denies any rashes, or erythema. No skin discoloration, no hives. Neurologic: No headaches no blurred vision no dizziness. No syncope. Psychiatric: Denies any symptoms of active depression Hematologic: Denies any clotting bleeding or bruising. Past Medical History Past Medical History: Asthma, COPD, Diabetes Mellitus, Hyperlipidemia, Hypertension, Osteoarthritis (OA) Additional Past Medical History / Comment(s): BRONCHITIS, DIVERTICULITIS, ECZEMA, OCCUPATIONAL ASTHMA; quit smoking 2014 History of Any Multi-Drug Resistant Organisms: None Reported Past Surgical History: Cholecystectomy Past Anesthesia/Blood Transfusion Reactions: No Reported Reaction Past Psychological History: No Psychological Hx Reported Smoking Status: Former smoker Past Alcohol Use History: None Reported Past Drug Use History: None Reported, Marijuana Medications and Allergies Home Medications Medication Instructions Recorded Confirmed Type Losartan-Hctz 50-12.5 mg [Hyzaar 1 tab PO DAILY 07/23/13 07/08/18 History 50-12.5] Atorvastatin [Lipitor] 20 mg PO DAILY 07/08/18 07/08/18 History Budesonide/Formoterol Fumarate 2 puff INHALATION RT-BID 07/08/18 07/08/18 History [Symbicort 80-4.5 Mcg Inhaler] Ipratropium/Albuterol Sulfate 3 ml INHALATION RT-QID 07/08/18 07/08/18 History [Duoneb 0.5 mg-3 mg/3 ml Soln] Montelukast [Singulair] 10 mg PO HS 07/08/18 07/08/18 History metFORMIN HCL 1,000 mg PO BID-W/MEALS 07/08/18 07/08/18 History Allergies Allergy/AdvReac Type Severity Reaction Status Date / Time No Known Allergies Allergy Verified 07/08/18 11:28 Physical Exam Vitals: Vital Signs Temp Pulse Pulse Pulse Resp BP Pulse Ox 07/09/18 16:00 101 H 16 07/09/18 15:50 96 07/09/18 15:41 94 07/09/18 12:00 97.9 F 101 H 16 121/73 95 07/09/18 11:38 92 07/09/18 11:27 96 07/09/18 08:00 97.4 F L 98 16 123/73 98 07/09/18 07:59 98 16 07/09/18 07:45 94 07/09/18 07:36 98 92 L 07/09/18 03:32 97.8 F 98 16 114/66 96 07/09/18 03:08 20 07/08/18 23:52 20 07/08/18 23:38 97.7 F 116 H 20 159/85 95 07/08/18 20:00 97.8 F 104 H 18 109/66 96 07/08/18 18:59 102 H Intake and Output 07/09/18 07/09/18 07/09/18 06:59 14:59 22:59 Intake Total 200 Balance 200 Intake: Oral 200 Other: Voiding Method Toilet Toilet Toilet # Voids 1 Physical Exam revealed a 62-year-old female in no distress. Head: Atraumatic normocephalic. HEENT:[Neck is supple.] [No neck masses.] [No thyromegaly.] [No JVD.] Chest: [Rhonchi and wheezes bilaterally more so on forced expiratory maneuver..] Cardiac Exam: [Normal S1 and S2, no S3 gallop, no murmur.] Abdomen: [Soft, nontender, no megaly, no rebound, no guarding, normal bowel sounds.] Extremities: [No clubbing, no edema, no cyanosis.] Neurological Exam: [No focal neurologic deficit.] Alert oriented 3. Skin: No rashes. Lymphatics: No lymphadenopathy. Psychiatric: Normal mood affect and mental status examination. Results - Laboratory Findings CBC and BMP: 07/09/18 06:01 07/09/18 06:01 PT/INR, D-dimer PT 9.8 sec (9.0-12.0) 07/08/18 11:52 INR 0.9 (<1.2) 07/08/18 11:52 D-Dimer 0.58 mg/L FEU (<0.60) 07/08/18 11:52 Abnormal lab findings: Abnormal Labs 07/08/18 07/08/18 07/08/18 11:52 11:52 16:29 WBC 11.0 H Neutrophils # 8.9 H Lymphocytes # Chloride Creatinine Glucose 124 H POC Glucose (mg/dL) 155 H Alkaline Phosphatase 134 H 07/08/18 07/09/18 07/09/18 20:45 06:01 06:01 WBC 10.9 H Neutrophils # 10.0 H Lymphocytes # 0.7 L Chloride 108 H Creatinine 0.47 L Glucose 160 H POC Glucose (mg/dL) 257 H Alkaline Phosphatase 07/09/18 07/09/18 07/09/18 06:44 11:40 16:45 WBC Neutrophils # Lymphocytes # Chloride Creatinine Glucose POC Glucose (mg/dL) 160 H 145 H 176 H Alkaline Phosphatase - Diagnostic Findings Chest x-ray: image reviewed CT scan - chest: image reviewed (Noted in HPI.) Assessment and Plan Assessment: Impression: 1 acute exacerbation of COPD 2 atypical chest pain 3 acute purulent tracheobronchitis 4 benign essential hypertension 5 type 2 diabetes 6 degenerative joint disease 7 remote nicotine dependence and smoking quit in 2003 Recommendation: Reviewed the present pulmonary medications which where initiated upon admission, and that includes Symbicort, Rocephin, albuterol with Atrovent, methylprednisolone, Singulair, they all seem to be very appropriate, I suggest we continue the same treatment plan, and possibly evaluate for possible discharge in the next 24-48 hours. We'll see the patient on outpatient basis post discharge. Time with Patient: Greater than 30
--- NOTE | 2018-07-09 17:13 | PN ---
PROGRESS NOTE DATE OF SERVICE: 07/09/2018 This 62-year-old woman who was admitted with chest pain also had significant bronchitis. Patient also has COPD. Patient is being closely monitored. Cardiology and pulmonology evaluations in progress. Chest CTA ruled out the possibility of pulmonary embolism. On exam, alert and oriented x3. Pulse is 101, blood pressure 121/73, respirations 16, temperature 97.9, pulse ox 94% on room air. HEENT: Conjunctivae normal. NECK: No jugular venous distention. CARDIOVASCULAR SYSTEM: S1, S2 muffled. RESPIRATORY SYSTEM: Breath sounds diminished at the bases. A few scattered rhonchi and crackles. Expiratory wheezing. ABDOMEN: Soft, non-tender. LEGS: No edema. No swelling. NERVOUS SYSTEM: No focal deficit. LABS: WBC 10.9, hemoglobin 11.6. Sodium 140, potassium 4.7. ASSESSMENT: 1. Chest pain; possible pleuritic pain. 2. Rule out coronary artery disease. 3. Chronic obstructive pulmonary disease, acute exacerbation, with acute purulent tracheobronchitis. 4. History of asthma. 5. Diabetes mellitus, type 2. 6. Hypertension. 7. Hyperlipidemia. 8. Degenerative joint disease. 9. History of eczema. 10.Remote history of nicotine dependence. 11.History of cholecystectomy. RECOMMENDATIONS AND DISCUSSION: I recommend to continue current medications, continue with the monitoring, symptomatic treatment. Continue the bronchodilators. Taper the steroids. Closely follow with Pulmonary and Cardiology. Guarded prognosis because of multiple complex medical problems. Further recommendations to follow. MMODL / IJN: [id number] /
--- NOTE | 2018-07-09 17:49 | ECHOF ---
Referral Reason:sob MEASUREMENTS -------- HEIGHT: 149.9 cm WEIGHT: 70.3 kg BP: 123/73 IVSd: 1.2 cm (0.6 - 1.1) LVIDd: 4.2 cm (3.9 - 5.3) LVPWd: 1.2 cm (0.6 - 1.1) IVSs: 1.4 cm LVIDs: 2.7 cm LVPWs: 1.4 cm LA Diam: 3.2 cm (2.7 - 3.8) RVIDd: 3.0 cm (< 3.3) LAESV Index (A-L): 16.52 ml/m Ao Diam: 2.9 cm (2.0 - 3.7) AV Cusp: 2.1 cm (1.5 - 2.6) EPSS: 0.3 cm MV E Erik: 1.00 m/s MV DecT: 103 ms MV A Erik: 1.15 m/s MV E/A Ratio: 0.87 RAP: 5.00 mmHg RVSP: 33.58 mmHg MV EF SLOPE: 156.72 mm/s (70 - 150) MV EXCURSION: 14.32 mm (> 18.000) FINDINGS -------- Resting tachycardia (HR>100bpm). This was a technically difficult study with suboptimal parasternal views. The left ventricular size is normal. There is borderline concentric left ventricular hypertrophy. Overall left ventricular systolic function is normal with, an EF between 60 - 65 %. The right ventricle is normal in size. Normal LA size by volume 22+/-6 ml/m2. The right atrium is normal in size. Interatrial and interventricular septum intact. The aortic valve was not well visualized. The mitral valve leaflets are mildly thickened. There is trace mitral regurgitation. Mild tricuspid regurgitation present. Right ventricular systolic pressure is normal at < 35 mmHg. The pulmonic valve was not well visualized. The aortic root size is normal. Normal inferior vena cava with normal inspiratory collapse consistent with estimated right atrial pre ssure of 5 mmHg. There is no pericardial effusion. CONCLUSIONS -------- 1. Resting tachycardia (HR>100bpm). 2. This was a technically difficult study with suboptimal parasternal views. 3. The left ventricular size is normal. 4. There is borderline concentric left ventricular hypertrophy. 5. Overall left ventricular systolic function is normal with, an EF between 60 - 65 %. 6. The right ventricle is normal in size. 7. Normal LA size by volume 22+/-6 ml/m2. 8. The right atrium is normal in size. 9. Interatrial and interventricular septum intact. 10. The aortic valve was not well visualized. 11. The mitral valve leaflets are mildly thickened. 12. There is trace mitral regurgitation. 13. Mild tricuspid regurgitation present. 14. Right ventricular systolic pressure is normal at < 35 mmHg. 15. The pulmonic valve was not well visualized. 16. The aortic root size is normal. 17. Normal inferior vena cava with normal inspiratory collapse consistent with estimated right atrial pressure of 5 mmHg. 18. There is no pericardial effusion. LEGAL ENTITY CONTROLLER: Gloria Andrade RDCS
[2018-07-09] MEDS: SODIUM CHLORIDE 0.9% 1,000 ML IV SCH (20:12)
[2018-07-09] MEDS: methylPREDNISolone SOD SUCCI 40 MG/ML 1 ML VIAL IV SCH (20:14)
[2018-07-09] MEDS: MONTELUKAST 10 MG TAB PO SCH (20:15)
[2018-07-09 20:17] LABS: Glucose,Whole Blood 219 mg/dL (75-99)
[2018-07-10 06:20] LABS: Basophils % (A) 0 %; Eosinophils % (A) 0 %; HCT 35.8 % (34.0-46.0); HGB 11.7 gm/dL (11.4-16.0); Lymphocytes # (A) 1.3 k/uL (1.0-4.8); Lymphocytes % (A) 8 %; MCH 27.8 pg (25.0-35.0); MCHC 32.7 g/dL (31.0-37.0); MCV 85.2 fL (80.0-100.0); Mean Platelet Volume 7.3; Monocytes # (A) 0.6 k/uL (0-1.0); Monocytes % (A) 4 %; Neutrophils # (A) 14.2 k/uL (1.3-7.7); Neutrophils % (A) 87 %; Platelet Count 298 k/uL (150-450); RDW 13.2 % (11.5-15.5); WBC 16.4 k/uL (3.8-10.6)
[2018-07-10 06:21] LABS: Anion Gap 7 mmol/L; Blood Urea Nitrogen 15 mg/dL (7-17); Calcium 9.1 mg/dL (8.4-10.2); Carbon Dioxide 26 mmol/L (22-30); Chloride 108 mmol/L (98-107); Glucose 151 mg/dL (74-99); Potassium 4.3 mmol/L (3.5-5.1); Sodium 141 mmol/L (137-145)
[2018-07-10 07:01] LABS: Glucose,Whole Blood 114 mg/dL (75-99)
[2018-07-10] MEDS: SYMBICORT 80-4.5 MCG INHALER INHALATION SCH (07:47)
[2018-07-10] MEDS: IPRATROPIUM-ALBUTEROL 3 ML NEB INHALATION SCH ×2 (07:47→11:53)
[2018-07-10] MEDS: INSULIN ASPART (NovoLOG) 100 UNIT/ML VIAL SQ SCH ×2 (08:19→12:55)
[2018-07-10] MEDS: methylPREDNISolone SOD SUCCI 40 MG/ML 1 ML VIAL IV SCH (08:23)
[2018-07-10] MEDS: metFORMIN 500 MG TAB PO SCH (08:24)
[2018-07-10] MEDS: guaiFENesin 600 MG TABLET.ER PO SCH (08:24)
[2018-07-10] MEDS: HEPARIN SODIUM,PORCINE 5,000 UNIT/ML 1 ML VIAL SQ SCH (08:24)
[2018-07-10] MEDS: LOSARTAN-HCTZ 50-12.5 MG 1 EACH TAB PO SCH (08:24)
[2018-07-10 08:30] VITALS: RESP 18
[2018-07-10] MEDS: ATORVASTATIN 20 MG TAB PO SCH (08:30)
[2018-07-10 11:40] LABS: Glucose,Whole Blood 153 mg/dL (75-99)
--- NOTE | 2018-07-10 11:57 | P.PN ---
Subjective Progress Note Date: 07/10/18 Principal diagnosis: Acute exacerbation of COPD, atypical chest pain, acute purulent tracheobronchitis This is a 62-year-old female with history of COPD, remote smoking history, h owever she is not O2 dependent and not prednisone dependent. Patient quit smoking in 2014, had questionable history of occupational asthma. According the patient I saw her for her COPD over 15 years ago, and over the last few years, she has been seeing Dr. Silvia quinn, but she has no plans to go back and see him again. Apparently at one point she was on Xolair injections and multiple bronchodilators for her COPD. Over the last 5 days, patient has been complaining of cough wheezing shortness of breath. And some vague chest discomfort. She had some heaviness in the chest, and pain on deep breathing. CT angiogram of the chest was performed and it showed mostly some pleural-based apical densities and some parenchymal scarring. She also had some scattered emphysematous changes. No evidence of pneumonia. No evidence of mediastinal adenopathy. Patient was admitted, placed on bronchodilators, and I was asked to see her on consultation. Presently less cough and less wheezing less shortness of breath, she was already seen by cardiology on consultation, and acute coronary event was ruled out based on her cardiac panel. Labs on admission showed relatively normal basic metabolic profile, normal troponin, normal BNP level, and a relatively normal CBC. On 07/22/2018 patient seen in follow-up on observation unit, she is breathing easier, less coughing, less bronchospastic, she was able to walk down the gann, on room air, tolerating activity well, lung sounds are diminished, with end expiratory wheezing, on forced exhale maneuver, lung sounds better on today's exam. Room air pulse ox is 95%, no acute events overnight. Blood culture showed no growth. Patient is anxious to go home today, from pulmonary perspective patient is stable for discharge home today. Objective - Vital Signs Vital signs: Vital Signs Temp 97.6 F 07/10/18 08:00 Pulse 94 07/10/18 08:00 Resp 18 07/10/18 08:15 BP 132/77 07/10/18 08:00 Pulse Ox 95 07/10/18 08:00 Intake & Output 07/09/18 07/10/18 07/10/18 18:59 06:59 18:59 Intake Total 200 200 Balance 200 200 Intake: Oral 200 Other 200 Other: Voiding Method Toilet Toilet Toilet # Voids 1 1 - Exam GENERAL EXAM: Alert, active, comfortable in no apparent distress. HEAD: Normocephalic/atraumatic. EYES: Normal reaction of pupils, equal size. Conjunctiva pink, sclera white. NOSE: Clear with pink turbinates. THROAT: No erythema or exudates. NECK: No masses, no JVD, no thyroid enlargement, no adenopathy. CHEST: No chest wall deformity. Symmetrical expansion. LUNGS: Equal air entry with end-expiratory wheezes on forced exhale maneuver CVS: Regular rate and rhythm, normal S1 and S2, no gallops, no murmurs, no rubs ABDOMEN: Soft, nontender. No hepatosplenomegaly, normal bowel sounds, no guarding or rigidity. EXTREMITIES: No clubbing, no edema, no cyanosis, 2+ pulses and upper and lower extremities. MUSCULOSKELETAL: Muscle strength and tone normal. SPINE: No scoliosis or deformity SKIN: No rashes CENTRAL NERVOUS SYSTEM: Alert and oriented -3. No focal deficits, tone is normal in all 4 extremities. PSYCHIATRIC: Alert and oriented -3. Appropriate affect. Intact judgment and insight. - Labs CBC & Chem 7: 07/10/18 05:53 07/10/18 05:53 Labs: Abnormal Lab Results - Last 24 Hours (Table) 07/09/18 07/09/18 07/10/18 Range/Units 16:45 20:16 05:53 WBC 16.4 H (3.8-10.6) k/uL Neutrophils # 14.2 H (1.3-7.7) k/uL Chloride (98-107) mmol/L Creatinine (0.52-1.04) mg/dL Glucose (74-99) mg/dL POC Glucose (mg/dL) 176 H 219 H (75-99) mg/dL 07/10/18 07/10/18 07/10/18 Range/Units 05:53 07:00 11:38 WBC (3.8-10.6) k/uL Neutrophils # (1.3-7.7) k/uL Chloride 108 H (98-107) mmol/L Creatinine 0.48 L (0.52-1.04) mg/dL Glucose 151 H (74-99) mg/dL POC Glucose (mg/dL) 114 H 153 H (75-99) mg/dL Microbiology - Last 24 Hours (Table) 07/08/18 11:52 Blood Culture - Preliminary Blood No Growth after 24 hours Assessment and Plan Plan: Assessment: 1 acute exacerbation of COPD 2 atypical chest pain 3 acute purulent tracheobronchitis 4 benign essential hypertension 5 type 2 diabetes 6 degenerative joint disease 7 remote nicotine dependence and smoking quit in 2003 Plan: Patient is doing well, improving, tolerating intubation, she is on room air, no fever or chills, blood culture showed no growth, from pulmonary perspective patient is stable to discharge home today on prednisone taper, she can continue her Symbicort, DuoNeb nebulized treatments, outpatient course of Ceftin. We'll follow up with Dr. Rodriguez in the office I performed a history & physical examination of the patient and discussed their management with my nurse practitioner, Veronica Euceda. I reviewed the nurse practitioner's note and agree with the documented findings and plan of care. Lung sounds are positive for end expiratory wheezes. The findings and the impression was discussed with the patient. I attest to the documentation by the nurse practitioner. Time with Patient: Less than 30
[2018-07-10 12:01] VITALS: BP 147/83; TEMP 98.3
[2018-07-10 12:05] VITALS: PULSE 100
--- NOTE | 2018-07-10 23:25 | DS ---
DISCHARGE SUMMARY DATE OF ADMISSION: 07/08/2018. DATE OF DISCHARGE: 07/10/2018. FINAL DIAGNOSES: 1. Chest pain possible pleuritic pain. 2. Myocardial infarction ruled out. 3. Chronic obstructive pulmonary disease acute exacerbation with acute purulent tracheobronchitis. 4. History of asthma. 5. Diabetes type 2. 6. Hypertension. 7. Hyperlipidemia. 8. DJD. 9. History of eczema. 10.Remote history of nicotine dependence. 11.History of cholecystectomy. DISCHARGE CONDITION: The patient is discharged in stable condition with guarded prognosis. HISTORY OF PRESENT ILLNESS: This 63-year-old woman presented with multiple medical issues also had chest pain. The patient also had a cough and sputum also. The patient was seen by Cardiology and Pulmonology who recommended outpatient followup. The patient improved significantly on bronchodilators, steroids and antibiotics. On exam, vitals stable. Cardiovascular, S1 and S2. Few scattered rhonchi. DISCHARGE INSTRUCTIONS: 1. Cardiac diet. 2. Activity limited. FOLLOWUP: 1. Follow up with Dr. Rashid in 2-3 days. 2. Follow up with [facility] and Dr. Elena as recommended. MEDICATIONS: 1. DuoNeb q.i.d. and p.r.n. 2. Hyzaar 50/12.5 mg daily. 3. Lipitor 20 mg daily. 4. Metformin 1000 mg p.o. b.i.d. with meals. 5. Singulair 10 mg p.o. at bedtime. 6. budsonide/formeterol 80/4.5 two puffs b.i.d. 7. Ceftin 500 mg p.o. b.i.d. for 7 days. 8. DuoNeb q.i.d. p.r.n. 9. Prednisone taper 40 mg 3 days, 30 for 3 days, 20 for 3 days, 10 for 3 days then stop. 10.Tylenol p.r.n. MMODL / IJN: [id number] / MTDD
== END 2018-07-10 13:45 | disposition home or self-care (01) ==
LOC: EC 11:04 → 1SOBS 15:24
PROVIDERS: ADMIT Hospitalist; ATTEND Hospitalist
DX: R07.89 Other chest pain (principal); J44.1 Chronic obstructive pulmonary disease with (acute) exacerbation; J44.0 Chronic obstructive pulmonary disease with (acute) lower respiratory infection; J20.9 Acute bronchitis, unspecified; I10 Essential (primary) hypertension; E11.9 Type 2 diabetes mellitus without complications; K57.90 Diverticulosis of intestine, part unspecified, without perforation or abscess without bleeding; M19.90 Unspecified osteoarthritis, unspecified site; L30.9 Dermatitis, unspecified; E78.5 Hyperlipidemia, unspecified; R00.0 Tachycardia, unspecified; R91.1 Solitary pulmonary nodule; Z79.51 Long term (current) use of inhaled steroids; Z79.84 Long term (current) use of oral hypoglycemic drugs; Z79.899 Other long term (current) drug therapy; Z90.49 Acquired absence of other specified parts of digestive tract; Z87.09 Personal history of other diseases of the respiratory system; Z87.891 Personal history of nicotine dependence; Z82.49 Family history of ischemic heart disease and other diseases of the circulatory system
CPT/HCPCS: 96365; 96366; 96372 ×3; 96376 ×3; 96361; 96375; 99285; 36415; 94640 ×6; 94760; 93005; 93306; 85379; 83880; 80061; 80053; 80048 ×2; 84484; 85025 ×3; 85610; 85730; 87040; 71046; 71275; G0378 ×3; J1644 ×3; J2920 ×2; J2930 ×2; J0696 ×2; Q9967

== ENCOUNTER → 2018-07-26 | Outpatient (CLI) | payer MEDICARE ==
--- NOTE | 2018-07-30 12:20 | MM ---
Reason for exam: screening (asymptomatic). Last mammogram was performed 1 year and 1 month ago. History: Patient is postmenopausal. Physical Findings: A clinical breast exam by your physician is recommended on an annual basis and results should be correlated with mammographic findings. MG Screening Mammo w CAD Bilateral CC and MLO view(s) were taken. Prior study comparison: June 28, 2017, bilateral MG screening mammo w CAD. May 26, 1999, bilateral diagnostic mammogram. The breast tissue is heterogeneously dense. This may lower the sensitivity of mammography. No suspicious abnormality. No significant changes when compared with prior studies. ASSESSMENT: Negative, BI-RAD 1 RECOMMENDATION: Routine screening mammogram of both breasts in 1 year.
== END ==
LOC: RADMAMWWP 13:28
PROVIDERS: ATTEND Internal Medicine
DX: Z12.31 Encounter for screening mammogram for malignant neoplasm of breast (principal)
CPT/HCPCS: 77067

== ENCOUNTER → 2023-04-30 | Outpatient (CLI) | payer MEDICARE ==
--- NOTE | 2023-04-30 15:54 | XR ---
EXAMINATION TYPE: XR foot complete RT DATE OF EXAM: 04/30/2023 3:26 PM CLINICAL INDICATION:Female, 67 years old with history of [id number] RT FOOT PAIN; [facility] COMPARISON: None TECHNIQUE: XR foot complete RT examined in the AP, oblique, and lateral projections. FINDINGS: No evidence of any acute osseous pathology. No evidence of soft tissue swelling. Joints are preserve d. Calcaneal plantar spurring is present. Calcaneal Achilles enthesophyte formation. Mild multifocal degeneration changes worse at the first digit metatarsophalangeal joint. IMPRESSION: 1. No evidence of acute fracture. 2. Mild multifocal degeneration changes throughout the foot.
== END | disposition home or self-care (01) ==
LOC: RADXRYALE 15:14
PROVIDERS: ATTEND Internal Medicine
DX: M19.071 Primary osteoarthritis, right ankle and foot (principal)